=== PATIENT | male | born 1980 | race Asian ===

== ENCOUNTER 2020-12-18 20:40 | Emergency (ER) | payer SELFPAY ==
[~2020-12-18] VITALS: Ht 172.7 cm; Wt 63.5 kg
[2020-12-18] MEDS ORDERED: BUPR300T52 PO (20:48)
[2020-12-18] MEDS ORDERED: ONDANSETRON 4 MG/2 ML VIAL IV ONE (21:30)
[2020-12-18] MEDS ORDERED: HYDROMORPHONE 1 MG/1 ML DISP.SYRIN IV ONE (21:30)
[2020-12-18] MEDS ORDERED: HYDROMORPHONE 1 MG/1 ML DISP.SYRIN ONE (21:41)
[2020-12-18] MEDS ORDERED: ONDANSETRON 4 MG/2 ML VIAL ONE (21:41)
--- NOTE | 2020-12-18 21:58 | NUR ---
IV PLACED AND MEDS ADMINISTERED EARLIER, RT SHOULDER REDUCED AND RT SHOULDER IMMOBIZER WAS PLACED. POST REDUCION RT SHOULDER XRAY BEING DONE NOW
[2020-12-18] MEDS ORDERED: IBUPROFEN 600 MG TABLET PO ONE (22:00)
[2020-12-18] MEDS ORDERED: IBUPROFEN 600 MG TABLET ONE (22:16)
--- NOTE | 2020-12-18 22:21 | NUR ---
IV removed. Catheter intact and site benign. Pressure and 4x4 gauze applied to site. No bleeding noted.
--- NOTE | 2020-12-18 22:22 | NUR ---
Patient discharged to home in stable condition with patient taking [employer] home. Written and verbal after care instructions given. Patient verbalizes understanding of instructions. Stressed follow up or return to ER for worsening s/s.
[2020-12-18 22:24] VITALS: BP 128/89
== END 2020-12-18 22:24 | disposition home or self-care (01) ==
LOC: ER 20:42
DX: M24.411 Recurrent dislocation, right shoulder (principal); F32.9 Major depressive disorder, single episode, unspecified; Z79.899 Other long term (current) drug therapy
CPT/HCPCS: 73030; A4663; J1170; J2405